=== PATIENT | female | born 1990 | race Caucasian/White ===

== ENCOUNTER 2016-09-14 11:06 | Emergency (ER) | payer OTHER ==
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
== END 2016-09-14 12:40 | disposition home or self-care (01) ==
LOC: CED 11:06 → CFTX 11:06
DX: S02.2XXA Fracture of nasal bones, initial encounter for closed fracture (principal); F41.9 Anxiety disorder, unspecified; F17.200 Nicotine dependence, unspecified, uncomplicated; Z86.19 Personal history of other infectious and parasitic diseases; Z79.899 Other long term (current) drug therapy; W22.8XXA Striking against or struck by other objects, initial encounter; Y92.009 Unspecified place in unspecified non-institutional (private) residence as the place of occurrence of the external cause
CPT/HCPCS: 70486; 99283; J0696

== ENCOUNTER 2016-09-27 18:30 | Emergency (ER) | payer OTHER ==
--- NOTE | ~2016-09-27 | CR142 ---
[facility] A Service [facility] RADIOLOGY TEXT RESULTS PATIENT: OLIVIA PRICE LOCATION: SED : [birth year] UNIT #: [id number] AGE: [address]: Jonathan Talley SEX: F ORDER DR: [id number] [address] [address] [id number] E MR#: [id number] Acc #: [id number] NAME: OLIVIA PRICE : 1990 SEX: F STUDY DATE/TIME: 09/27/2016 18:57 UNIT: SED ROOM: STUDY DESCRIPTION: CR Hand Min 3 Views Rt Attending Physician: Jonathan Talley P.A.-C. Ordering Physician: Jonathan Talley P.A.-C. Primary Care Physician: [facility] MEDICAL IMAGING REPORT This report is preliminary unless electronic signature is present. EXAM Right hand, 3 views, 09/27/16 INDICATIONS Spider bite to the right pointer finger, swelling and redness involving the second finger and second and third metacarpal region for 2 days. Hepatitis C. Heroin abuse. Pain and swelling of the right hand. TECHNIQUE Three views of the right hand were performed. No comparisons. FINDINGS There is diffuse soft tissue swelling throughout the right hand, particularly dorsally and in the first and second webspace. No acute fracture, no retained opaque foreign body, no subcutaneous air or focal erosive change at this time. Imaging features are nonspecific but may reflect generalized cellulitis. IMPRESSION 1. Moderately severe generalized soft tissue swelling. This may reflect diffuse cellulitis, but is otherwise nonspecific. No acute fracture or focal erosive change. Dictated by... Behzad Rai M.D. THIS IS AN ELECTRONICALLY VERIFIED REPORT Behzad Rai M.D. at 09/27/2016 10:10 PM Yenifer TD: 09/27/2016 21:23 [facility] A Service [facility] RADIOLOGY TEXT RESULTS PATIENT: OLIVIA PRICE [id number] [birth year] UNIT #: [id number] AGE: [address]: Jonathan Talley PAC SEX: F ORDER DR: KITTY #: [id number] MEDICAL IMAGING REPORT Page 1 of 1
[2016-09-27] MEDS ORDERED: WELLBUTRIN75 M1 (18:38)
[2016-09-27] MEDS ORDERED: ABILIFY (18:38)
[2016-09-27] MEDS ORDERED: LAMICTAL (18:38)
[2016-09-27] MEDS ORDERED: DESYREL150 M1 (18:38)
[2016-09-27 19:37] LABS: BASOPHIL# 0.1 X10e3 (0-0.3); BASOPHIL% 0.7 % (0-2.5); DIFF IND NO; EOSINOPHIL# 0.1 X10e3 (0-0.7); EOSINOPHIL% 0.8 % (0.0-7.0); HEMATOCRIT 40.1 % (35.0-45.0); HEMOGLOBIN 13.4 gm/dL (12.0-16.0); LYMPHOCYTE# 3.4 X10e3 (1.0-3.5); LYMPHOCYTE% 24.4 % (17.0-45.0); MEAN CELL VOLUME 85.2 FL (83-96); MEAN CORPUSCULAR HEMOGLOBIN 28.5 PG (28-34); MEAN CORPUSCULAR HGB CONC 33.4 g/dL (30-36); MEAN PLATELET VOLUME 7.8 FL (6.5-11.5); MONOCYTE# 1.3 X10e3 (0-1.0); MONOCYTE% 9.3 % (3.0-12.0); NEUTROPHIL% 64.8 % (40-75); PLATELET COUNT 254 X10e3 (140-420); RED BLOOD COUNT 4.71 X10e (3.90-5.30); WHITE BLOOD COUNT 13.9 X10e3 (4.0-10.5)
[2016-09-27 19:54] LABS: BUN/CREATININE RATIO 12.85; CALCIUM SERUM 8.6 mg/dL (8.4-10.2); CREATININE SERUM 0.7 mg/dL (0.6-1.4); GLOM FILT RATE Estimated 119.6 mL/min (>60)
== END 2016-09-27 20:23 | disposition home or self-care (01) ==
LOC: SED 18:30
PROVIDERS: Physician Assistant
DX: L03.011 Cellulitis of right finger (principal); B19.20 Unspecified viral hepatitis C without hepatic coma; F17.210 Nicotine dependence, cigarettes, uncomplicated; Z23 Encounter for immunization
CPT/HCPCS: 36415; 73130; 80048; 84703; 85025; 90471; 90715; 96365; 99284

== ENCOUNTER 2016-09-28 19:53 | Emergency (ER) | payer OTHER ==
[~2016-09-28 19:53] MED LIST: ABILIFY; DESYREL150 M1; LAMICTAL; WELLBUTRIN75 M1
== END 2016-09-28 21:24 | disposition home or self-care (01) ==
LOC: SED 19:53
DX: L03.113 Cellulitis of right upper limb (principal); F17.200 Nicotine dependence, unspecified, uncomplicated; Z86.19 Personal history of other infectious and parasitic diseases
CPT/HCPCS: 99283

== ENCOUNTER 2016-10-23 13:50 | Emergency (ER) | payer OTHER ==
[2016-10-23 15:13] LABS: BASOPHIL# 0.1 X10e3 (0-0.3); BASOPHIL% 0.6 % (0-2.5); EOSINOPHIL# 0.1 X10e3 (0-0.7); EOSINOPHIL% 0.5 % (0.0-7.0); HEMATOCRIT 41.3 % (35.0-45.0); HEMOGLOBIN 13.8 gm/dL (12.0-16.0); LYMPHOCYTE# 3.8 X10e3 (1.0-3.5); LYMPHOCYTE% 23.9 % (17.0-45.0); MEAN CELL VOLUME 86.5 FL (83-96); MEAN CORPUSCULAR HGB CONC 33.5 g/dL (30-36); MEAN PLATELET VOLUME 7.5 FL (6.5-11.5); MONOCYTE% 6.5 % (3.0-12.0); NEUTROPHIL# 10.9 X10e3 (1.5-7.1); NEUTROPHIL% 68.5 % (40-75); PLATELET COUNT 256 X10e3 (140-420); RED BLOOD COUNT 4.78 X10e (3.90-5.30); RED CELL DISTRIBUTION WIDTH 14.1 % (11.0-15.5)
[2016-10-23 15:14] LABS: DIFF IND NO
[2016-10-23 15:43] LABS: URINE SOURCE CLEAN CATCH
[2016-10-23 15:47] LABS: URINE APPEARANCE HAZY; URINE BILIRUBIN NEG (NEG); URINE BLOOD NEG (NEG); URINE COLOR YELLOW; URINE GLUCOSE NEG (NORM); URINE KETONE NEG (NEG); URINE LEUKOCYTE ESTERASE TRACE (NEG); URINE NITRATE NEG (NEG); URINE PROTEIN NEG (NEG); URINE SPECIFIC GRAVITY 1.015 (1.003-1.035); URINE UROBILINOGEN 0.2 MG/DL (NORM)
[2016-10-23 15:55] LABS: AMPHETAMINE POS (NEG); BARBITURATES NEG (NEG); BENZODIAZEPINES NEG (NEG); COCAINE POS (NEG); MARIJUANA POS (NEG); OPIATES NEG (NEG); TRICYCLIC ANTIDEPRESSANTS NEG (NEG); U METHADONE NEG (NEG)
[2016-10-23 16:02] LABS: MICRO INDICATED? YES
[2016-10-23 16:03] LABS: CULTURE INDICATED? YES; URINE BACTERIA 2+ (NEG); URINE MUCUS PRESENT; URINE RBC 0-2 /[HPF] (0-2); URINE SQUAMOUS EPITHELIAL CELL MANY /[HPF]
== END 2016-10-23 16:19 | disposition home or self-care (01) ==
LOC: SED 13:50
PROVIDERS: Nurse Practitioner
DX: L03.113 Cellulitis of right upper limb (principal); F41.9 Anxiety disorder, unspecified; F31.9 Bipolar disorder, unspecified; F17.210 Nicotine dependence, cigarettes, uncomplicated; Z86.19 Personal history of other infectious and parasitic diseases; Z79.899 Other long term (current) drug therapy
CPT/HCPCS: 80307; 81003; 84703; 85025; 87086; 96365; 99283